=== PATIENT | female | born 1965 | race Caucasian/White ===

== ENCOUNTER → 2016-12-19 | Outpatient (CLI) | payer SELFPAY ==
--- NOTE | 2016-12-19 11:09 | MM ---
Reason for exam: screening (asymptomatic). Baseline mammogram. History: Took hormonal contraceptives for 4 years beginning at age 18. Physical Findings: Nurse did not find any significant physical abnormalities on exam. MG Screening Mammo w CAD Bilateral CC and MLO view(s) were taken. There are scattered fibroglandular densities. Finding: There are few typically benign round calcifications in the left breast. There is no discrete abnormality. There is no discrete abnormality. These results were verbally communicated with the patient and result sheet given to the patient on 12/19/16. ASSESSMENT: Benign, BI-RAD 2 RECOMMENDATION: Routine screening mammogram of both breasts in 1 year.
== END | disposition home or self-care (01) ==
LOC: RADMAMWWP 10:11
PROVIDERS: ATTEND Family Medicine
DX: Z12.31 Encounter for screening mammogram for malignant neoplasm of breast (principal)

== ENCOUNTER → 2023-09-02 | Outpatient (CLI) | payer BC ==
--- NOTE | 2023-09-02 18:57 | US ---
EXAMINATION TYPE: US carotid duplex BILAT DATE OF EXAM: 09/02/2023 COMPARISON: NONE CLINICAL INDICATION: Female, 58 years old with history of Z91.89 RISK FACTORS FOR STROKE; Current smo ker. No HTN. TECHNIQUE: Carotid duplex ultrasound examination. Indirect Doppler criteria was utilized. FINDINGS: EXAM MEASUREMENTS: RIGHT: Peak Systolic Velocity (PSV) cm/sec ----- Right CCA: 89.4 ----- Right ICA: 53.5 ----- Right ECA: 58.2 ICA/CCA ratio: 0.6 RIGHT: End Diastole cm/sec ----- Right CCA: 22.0 ----- Right ICA: 14.3 ----- Right ECA: 11.7 LEFT: Peak Systolic Velocity (PSV) cm/sec ----- Left CCA: 80.9 ----- Left ICA: 60.0 ----- Left ECA: 45.3 ICA/CCA ratio: 0.7 LEFT: End Diastole cm/sec ----- Left CCA: 25.8 ----- Left ICA: 23.1 ----- Left ECA: 9.7 VERTEBRALS (direction of flow): Right Vertebral: Antegrade Left Vertebral: Antegrade Rhythm: Normal [employer]OR NOTES: No plaque or wall thickening. No elevated velocities. IMPRESSION: Less than 50% stenosis of the bilateral carotid bifurcations. Criteria for Assigning % of Stenosis / Diameter reduction (Estimation based on the indirect measurements of the internal carotid artery velocities (ICA PSV). 1. Normal (no stenosis)=ICA PSV < 125 cm/s: ratio < 2.0: ICA EDV<40 cm/s. 2. Less than 50% stenosis=ICA PSV < 125 cm/s: ratio < 2.0: ICA EDV<40 cm/s. 3. 50 to 69% stenosis=ICA PSV of 125 to 230 cm/s: ration 2.0 ? 4.0: ICA EDV 40-100 cm/s. 4. Greater than 70% stenosis to near occlusion= ICA PSV > 230 cm/s: ratio > 4.0: ICA EDV > 100 cm/s. 5. Near occlusion= ICA PSV velocities may be low or undetectable: variable ratio and ICA EDV. 6. Total occlusion=unable to detect flow.
== END | disposition home or self-care (01) ==
LOC: RADUSWWP 12:49
PROVIDERS: ATTEND Family Medicine
DX: I65.23 Occlusion and stenosis of bilateral carotid arteries (principal); Z91.89 Other specified personal risk factors, not elsewhere classified
CPT/HCPCS: 93880